=== PATIENT | male | born 1955 | race Caucasian/White ===

== ENCOUNTER 2024-03-15 10:50 | Day surgery (SDC) | payer MEDICARE, OTHER ==
[~2024-03-15] VITALS: Ht 183 cm; Wt 83.6 kg
[2024-03-15] VITALS (12 sets, daily range): BP systolic 15–190; BP diastolic 65–92; PULSE 47–55; TEMP 98.1
[~2024-03-15 10:50] MED LIST: GLUCOPHAGE500 MG/TAB PO; ZOCOR 40MG40 MG PO
[2024-03-15] MEDS ORDERED: 1/2 NS 1,000 ML IV SCH (11:15)
[2024-03-15 11:33] LABS: HEMOGLOBIN 15.3 g/dl (13.5-18.0); MEAN CELL VOLUME 84 fl (80.0-100.0); MEAN CORPUSCULAR HEMOGLOBIN 29 pg (27-31); MEAN CORPUSCULAR HGB CONC 35 g/dl (33.0-37.0); MEAN PLATELET VOLUME 8.9 fl (7.4-10.4); PLATELET COUNT 253 K/mm3 (130-400); RED BLOOD COUNT 5.22 M/mm3 (4.20-5.60)
[2024-03-15 11:38] LABS: INR 1.1 (0.8-3.0); PROTHROMBIN TIME 12.2 SECONDS (9.7-12.8)
[2024-03-15 11:40] LABS: PARTIAL THROMBOPLASTIN TIME 40.1 SECONDS (26.0-37.0)
[2024-03-15] MEDS ORDERED: TOPROL XL 25MG25 MG PO (11:50)
[2024-03-15] MEDS ORDERED: ASPIRIN 81M81 MG/TA2 PO (11:50)
[2024-03-15] MEDS ORDERED: LIPITOR 40MG TA40 MG PO (11:51)
[2024-03-15] MEDS ORDERED: CINNAMON500 MG (11:51)
[2024-03-15] MEDS ORDERED: MASON NATURAL1200 MG PO (11:52)
[2024-03-15] MEDS ORDERED: TRESIBA FL200 UNIT/1 SQ (11:53)
[2024-03-15] MEDS ORDERED: TOUJEO MAX300 UNIT/1 SQ (11:56)
[2024-03-15] MEDS ORDERED: NITROSTAT0.4 MG/TAB SL (11:57)
[2024-03-15 11:58] LABS: CALCIUM 10.2 mg/dL (8.4-10.2); CREATININE, serum 0.86 mg/dL (0.72-1.25); POTASSIUM 4.3 mEq/L (3.5-4.5)
[2024-03-15] MEDS ORDERED: VTAMINC250TA (11:58)
[2024-03-15] MEDS ORDERED: VITAMIN B12 781 TAB (11:58)
[2024-03-15] MEDS ORDERED: VITAMIN D 400400 IU PO (11:59)
[2024-03-15] MEDS ORDERED: GALZIN25 MG (12:00)
[2024-03-15] MEDS ORDERED: FLOMAX 0.40.4 MG/CAP PO (12:02)
--- NOTE | 2024-03-15 13:17 | NUR ---
SEE MERGE FOR PROCEDURE DOCUMENTATION
[2024-03-15] MEDS ORDERED: niCARdipine (Cath Lab) 100 MCG/ML 10 ML VIAL IA SCH (13:30)
[2024-03-15] MEDS ORDERED: Heparin 1,000 UNITS/ML 10 ML Multi-Dose VIAL IV SCH (13:30)
[2024-03-15] MEDS ORDERED: Iohexol 350 - 100 ML VIAL INCOR ONE (13:40)
[2024-03-15] MEDS ORDERED: Midazolam 2 MG/2 ML VIAL IV SCH (13:41)
[2024-03-15] MEDS ORDERED: fentaNYL 50 MCG/ML 2 ML VIAL IV SCH (13:42)
--- NOTE | 2024-03-15 14:00 | NUR ---
PATIENT ALERT AND ORIENTED, VSS. PATIENT TRANSFERRED TO BED AND TRANSPORTED TO [facility]. FAMILY BROUGHT TO BEDSIDE, PLAN OF CARE REVIEWED. RADIAL SITE REMAINS CDI. VSS. BED TO LOWEST POSITION, X3 BEDRAILS IN PLACE, CALL LIGHT WITHIN REACH.
[2024-03-15] MEDS ORDERED: NORVASC 5MG5 MG/TAB PO (14:39)
[2024-03-15] MEDS ORDERED: LIPITOR 80MG80 MG PO (14:39)
[2024-03-15] MEDS ORDERED: IMDUR 30MG30 MG/TAB PO (14:40)
--- NOTE | 2024-03-15 17:45 | NUR ---
Pt ambulated with a steady gait to [facility], accompanied by . Pt was scheduled for a [facility]. EKG done. IV started. Meds and HX reviewed with the pt. Consent for the procedure was signed. Post procedure the pt came back to [facility]. The right radial site was assessed, clean and dry. Offered the pt something to eat and drink. The pt accepted a water and a meal was ordered. The pt was bedrest for 1 hr. After the hr bedrest the pt got up to use the restroom. At the end of the 2hrs recovering air was released from the band. 2 mls was taken out of the band, the site did start to bleed. The 2mls of air was reinserted into the band. About 20 minutes later 2 mls of air was removed from the band. No bleeding occured. The remaining air was released 2 mls about every 15 mins. Once all the air was released the right radial site was cleaned and a band-aid was applied. The deflated radial band was cleaned and then reapplied as a reminder to limit extremity use. Discharge education and information was discussed with the pt. No questions at the time. The pts IV was dc'd and the site was wrapped with coban. The pt exited the unit by wheelchair accompanied by the nurse to the wifes car.
== END 2024-03-15 17:33 | disposition home or self-care (01) ==
LOC: COL.CAR 10:50
PROVIDERS: Internal Medicine Cardiovascular Disease
DX: I25.10 Atherosclerotic heart disease of native coronary artery without angina pectoris (principal); I34.0 Nonrheumatic mitral (valve) insufficiency; I51.89 Other ill-defined heart diseases; I44.7 Left bundle-branch block, unspecified; Z85.038 Personal history of other malignant neoplasm of large intestine; Z79.82 Long term (current) use of aspirin
CPT/HCPCS: C1769; J1644; J2250; J2404; J3010; Q9967